=== PATIENT | female | born 1980 | race Caucasian/White ===

== ENCOUNTER 2017-10-05 16:17 | Observation (INO) | payer OTHER ==
[~2017-10-05] VITALS: Ht 159 cm; Wt 95.7 kg
[~2017-10-05 16:17] MED LIST: FOLI5VIA2 IM
[2017-10-05] MEDS ORDERED: OXYTOCIN 30 UNITS/LACT RINGERS 500 ML IV ONE (16:21)
[2017-10-05] MEDS ORDERED: RINGERS SOLUTION,LACTATED 1,000 ML IV SCH (16:21)
[2017-10-05] MEDS ORDERED: RINGERS SOLUTION,LACTATED 1,000 ML IV PRN (16:21)
[2017-10-05] MEDS ORDERED: METOCLOPRAMIDE HCL 5 MG/ML 2 ML VIAL IVP PRN (16:30)
[2017-10-05] MEDS ORDERED: FentaNYL CITRATE-PF 100 MCG/2 ML VIAL IVP PRN (16:30)
[2017-10-05] MEDS ORDERED: CITRIC ACID/SODIUM CITRATE 30 ML SOLUTION UDCUP PO PRN (16:30)
[2017-10-05] MEDS ORDERED: TERBUTALINE SULFATE 1 MG/ML VIAL SQ PRN (16:30)
[2017-10-05] MEDS ORDERED: PREN1TAB80 PO (16:52)
[2017-10-05 16:56] VITALS: BP 110/58
[2017-10-05 17:31] LABS: BASOPHILS % (AUTO) 0.2 % (0.0-2.0); EOSINOPHILS % (AUTO) 0.1 % (1.0-6.0); HEMATOCRIT 35.5 % (36-46); HEMOGLOBIN 12.4 g/dL (12.0-16.0); LYMPHOCYTES # (AUTO) 1.2 K/uL (1.0-4.8); LYMPHOCYTES % (AUTO) 19.6 % (22.0-44.0); MEAN CORPUSCULAR HGB CONC 34.8 G/dL (31.0-37.0); MEAN CORPUSCULAR VOLUME 89 fL (80-100); MONOCYTES # (AUTO) 0.4 K/uL (0.1-1.0); NEUTROPHILS # (AUTO) 4.4 K/uL (1.8-7.7); NEUTROPHILS % (AUTO) 74.1 % (40.0-70.0); PLATELET COUNT (AUTO) 183 K/uL (150-450); RED BLOOD CELL COUNT(AUTO) 3.99 MIL/uL (4.00-5.20); RED CELL DISTRIBUTION WIDTH 14.6 % (11.5-14.5)
[2017-10-05] MEDS ORDERED: DINOPROSTONE 10 MG VAGINAL SUPPOSITORY VG ONE (18:00)
[2017-10-05] MEDS ORDERED: OXYGEN THERAPY IH SCH (20:00)
[2017-10-06] MEDS ORDERED: -PHARMACY NOTE- MISC ONE (06:00)
== END 2017-10-05 18:55 | disposition home or self-care (01) ==
LOC: INTOOBSV 16:17 → 4S 16:17 → OBSVTOIN 16:17
PROVIDERS: ADMIT Obstetrics & Gynecology; ATTEND Obstetrics & Gynecology
DX: O09.523 Supervision of elderly multigravida, third trimester (principal); Z3A.39 39 weeks gestation of pregnancy
CPT/HCPCS: 36415; 59025; 76805; 85025; 86850; 86900; 86901; G0378; J7120